=== PATIENT | male | born 1955 | race Caucasian/White ===

== ENCOUNTER 2017-12-12 12:06 | Emergency (ER) | payer BC ==
--- NOTE | 2017-12-12 13:10 | EDM.PDOC ---
ED HPI GENERAL MEDICAL PROBLEM - General Stated Complaint: FISH HOOK IN LEFT HAND Time Seen by Provider: 12/12/17 12:10 Source of Information: Reports: Patient History Limitations: Reports: No Limitations - History of Present Illness INITIAL COMMENTS - FREE TEXT/NARRATIVE: According to patient he claims he was trying to get a fish hook out of the tackle box and accidentally held the fish hook and got the hook stuck in his left thumb and index fingers. No other injuries. No tingling or numbness in the finger, but hurts to move. Pt claims his last tetanus was 5 years ago. He is no on blood thinner. No other complaints. Onset: Today Onset Date: 12/12/17 Onset Time: 11:00 Location: Reports: Upper Extremity, Left Quality: Reports: Ache Severity: Mild Improves with: Reports: None Worsens with: Reports: None Associated Symptoms: Denies: Confusion, Chest Pain, Cough, Fever/Chills, Headaches, Nausea/Vomiting, Rash, Seizure, Shortness of Breath, Syncope, Weakness - Related Data Allergies Allergy/AdvReac Type Severity Reaction Status Date / Time atorvastatin Allergy Muscle Verified 12/12/17 12:27 Aches ator Allergy Muscle Uncoded 12/12/17 12:27 Aches Home Meds: Home Meds Metoprolol Tartrate [Lopressor] 50 mg PO DAILY 12/12/17 [History] Rosuvastatin [Crestor] 10 mg PO DAILY 12/12/17 [History] ED ROS GENERAL - Review of Systems Review Of Systems: See Below Constitutional: Denies: Fever, Chills HEENT: Denies: Rhinitis, Sinus Problem, Throat Pain Respiratory: Denies: Cough, Sputum Cardiovascular: Denies: Chest Pain, Lightheadedness GI/Abdominal: Denies: Nausea, Vomiting Musculoskeletal: Denies: Joint Pain, Joint Swelling Skin: Denies: Pruritis, Rash ED EXAM, GENERAL - Physical Exam Exam: See Below Exam Limited By: No Limitations General Appearance: Alert, WD/WN, No Apparent Distress Eye Exam: Bilateral Eye: EOMI, PERRL Ears: Normal External Exam, Normal Canal, Hearing Grossly Normal, Normal TMs Ear Exam: Bilateral Ear: Auricle Normal, Canal Normal, TM normal Nose: Normal Inspection, Normal Mucosa, No Blood Throat/Mouth: Normal Inspection, Normal Lips, Normal Teeth, Normal Gums, Normal Oropharynx, Normal Voice, No Airway Compromise Head: Atraumatic, Normocephalic Neck: Normal Inspection, Supple, Non-Tender, Full Range of Motion Respiratory/Chest: No Respiratory Distress, Lungs Clear, Normal Breath Sounds, No Accessory Muscle Use, Chest Non-Tender Cardiovascular: Normal Peripheral Pulses, Regular Rate, Rhythm, No Edema, No Gallop, No JVD, No Murmur, No Rub Skin Exam: Warm, Intact, Other (left hadn: Pt does have his left thumb and index finger locked together by fish hooks in both ringer tips. Not able to seperate and painful. ) Course - Vital Signs Text/Narrative:: Pt reassured. 1% lido was infiltrated around the puncture site and the fish hook was removed using needle technique. Simple pressure dressing applied on the fingers. Advised to keep the wound clean and dry. advised to watch for signs of infection. Departure - Departure Time of Disposition: 12:30 Disposition: Home, Self-Care 01 Condition: Good Clinical Impression: Fish hook injury of left hand - Discharge Information Instructions: Puncture Wound, [id number] Referrals: PCP,None [Primary Care Provider] - - Problem List Review Problem List Initiated/Reviewed/Updated: Yes - Assessment/Plan Assessment:: Fish hook to left hand fingers Plan: Pt reassured. 1% lido was infiltrated around the puncture site and the fish hook was removed using needle technique. Simple pressure dressing applied on the fingers. Advised to keep the wound clean and dry. advised to watch for signs of infection.
== END 2017-12-12 12:30 | disposition home or self-care (01) ==
LOC: LB.ED 12:06
DX: S60.352A Superficial foreign body of left thumb, initial encounter (principal); S60.451A Superficial foreign body of left index finger, initial encounter; Z88.8 Allergy status to other drugs, medicaments and biological substances; Z79.899 Other long term (current) drug therapy; W45.8XXA Other foreign body or object entering through skin, initial encounter
CPT/HCPCS: 99283